=== PATIENT | male | born 1970 | race Two or more races ===

== ENCOUNTER 2016-11-11 07:54 | Emergency (ER) | payer SELFPAY ==
[2016-11-11] MEDS ORDERED: ACETAMINOPHEN 325 MG TABLET ONE (08:28)
[2016-11-11] MEDS ORDERED: IBUPROFEN 600 MG TABLET ONE (08:28)
[2016-11-11] MEDS ORDERED: MORPHINE SULFATE 4 MG/ML SYRINGE ONE (08:29)
[2016-11-11] MEDS ORDERED: DEXAMETHASONE 4 MG TABLET ONE (08:29)
[2016-11-11] MEDS ORDERED: MORPHINE SULFATE 2 MG/ML SYRINGE ONE (08:29)
== END 2016-11-11 09:13 | disposition home or self-care (01) ==
LOC: ED 07:54
DX: M54.5 Low back pain (principal); F17.210 Nicotine dependence, cigarettes, uncomplicated
CPT/HCPCS: 99283 ×2; 96372; A9270 ×3; J2270 ×2